=== PATIENT | male | born 1995 | race Caucasian/White ===

== ENCOUNTER 2020-06-16 05:01 | Emergency (ER) | payer MEDICARE, MEDICAID, SELFPAY ==
--- NOTE | ~2020-06-16 | XR_ITS ---
EXAMINATION: CHEST 2 VIEWS CLINICAL INFORMATION: Chest pain. COMPARISON: None. TECHNIQUE: PA and lateral views of the chest were obtained. FINDINGS: The cardiac silhouette is not enlarged. The mediastinal and hilar contours are unremarkable. There is a [id number] left apical pneumothorax without shift of midline structures. There are no pleural effusions. There are no consolidations. The osseous structures are unremarkable. XR/XR chest 2V IMPRESSION: Rqnbf-[id number] left apical pneumothorax without shift of midline structures. The aforementioned was communicated to Dr. Salinas at 0532 hours.
[2020-06-16 05:06] VITALS: BP 129/81; PULSE 92; RESP 16; TEMP 36.3; O2SAT 100; BMI 19.3
--- NOTE | 2020-06-16 05:10 | ECG_ITS ---
Test Reason : PNEUMO Blood Pressure : / mmHG Vent. Rate : 076 BPM Atrial Rate : 076 BPM P-R Int : 122 ms QRS Dur : 082 ms QT Int : 368 ms P-R-T Axes : 070 054 066 degrees QTc Int : 414 ms Normal sinus rhythm Normal ECG No previous ECGs available Referred By: Generic ED Physician Electronically Signed By:ROBERTO VELIZ
--- NOTE | 2020-06-16 05:13 | PC.NURSE ---
patient away for X-ray at this time.
--- NOTE | 2020-06-16 05:40 | ED_ITS ---
HPI - Chest Pain General Chief Complaint: Chest Pain Stated Complaint: Chest and arm pain Time Seen by Provider: 06/16/20 05:19 Source: patient Mode of arrival: ambulatory Limitations: no limitations History of Present Illness HPI narrative: 24-year-old male presented with sudden onset of left-sided chest pain, pain started 10 hours ago last night, denies any trauma to the chest, pain is localized to the left side of his chest, with no radiation, patient stated pain is moderate 5/10, pain is worsening by taking a deep breath, feels better when he take shallow breaths, no other associated symptoms, had similar pain in the past but never seek medical attention. Related Data Allergies Allergy/AdvReac Type Severity Reaction Status Date / Time No Known Allergies Allergy Unverified 01/25/20 16:31 Review of Systems Review of Systems: All other systems are reviewed and are negative Constitutional: Reports as per HPI and Reports no additional constitutional complaints Eyes: Reports as per HPI and Reports no additional eye complaints Reports system reviewed and no additional complaints, except as documented Cardiovascular: Reports as per HPI and Reports no additional cardiovascular complaints Respiratory: Reports as per HPI and Reports no additional respiratory complaints Gastrointestinal: Reports as per HPI and Reports no additional gastrointestinal complaints Genitourinary: Reports no additional female genitourinary complaints Musculoskeletal: Reports no additional musculoskeletal complaints Skin/Breast: Reports system reviewed and no additional complaints, except as docu Psychiatric: Reports no additional psychiatric complaints Endocrine: Reports no additional endocrine complaints Hematologic/Lymphatic: Reports no additional hematologic/lymphatic complaints Allergic/Immunologic: Reports no additional allergic/immunologic complaints Reports system reviewed and no additional complaints, except as documented and Reports Abnormal speech present [facility] Social History Social History Alcohol intake: never Smoking Status: Never smoker Use of substances other than those prescribed or required for medical reasons: No Advance Directives: No Advance Directives Information Provided: No Physical Exam Vital Signs: Vital Signs: Last Vital Signs Temp 97.3 F 06/16/20 05:06 Pulse 77 06/16/20 06:00 Resp 17 06/16/20 06:00 BP 116/80 06/16/20 06:00 Pulse Ox 100 06/16/20 06:00 Body Mass Index 19.3 Vital signs have been reviewed as normal and appeared to be correct. Blood pressure normal. Heart rate normal. Respiration rate normal. Temperature normal. Oxygen saturation normal. Appearance: Alert. Oriented X3. No acute distress. Head: Normal external exam. Normocephalic. Atraumatic. No Delgadillo signs noted. No raccoon eyes noted Eyes: PERRLA. EOMI. Conjunctiva and sclera normal. Eyelids normal. ENT:TM's Normal. Pharynx normal. Uvula midline. Moist mucous membranes. No trismus noted. No drooling noted. No muffled voice noted. Neck: Normal inspection. Neck supple. FROM. No adenopathy. Thyroid Normal. No meningeal signs. No neck mass noted. No subcu emphysema CVS: Normal heart rate and rhythm. Heart sound normal. No murmurs noted. Pulses normal throughout. Respiratory: No respiratory distress. Painless inspiration. Absence of breathing sounds on the left upper lung field otherwise Breath sounds normal. No wheezes/rales/rhonchi noted. Chest nontender. No accessory muscle usage noted or decreased air movement noted. No subcu emphysema Abdomen: Soft and nontender. Bowel sounds normal in all 4 quadrants. No diste ntion noted. No organomegaly noted. No visible injury noted. Back: No CVA tenderness. Full range of motion noted. Skin: Skin warm and dry. Normal skin color. Normal skin turgor. No rashes/lesions/lacerations noted. Extremities: No lower extremity edema. Extremities exhibit normal range of m otion. Extremities nontender. Neuro: Oriented X 3. No motor deficit. No sensory deficit. Reflexes normal. Course Course Course Narrative: Assessment and plan. 24-year-old male with nontraumatic spontaneous pneumothorax, case discussed with Tisha from thoracic surgeon service at [facility]. Who reviewed the x-ray and recommended to transfer the patient to [facility], patient will be transferred to [facility], patient has been accepted by Dr. Naveed CALLAHAN - Chest Pain Lab Data Attestation: I reviewed the patient's lab results. Result diagrams: 06/16/20 05:41 06/16/20 05:41 Labs: Lab Results 06/16/20 06/16/20 06/16/20 Range/Units 05:41 05:41 05:41 WBC 10.6 (4.8-10.8) X10*3/uL RBC 4.99 (4.60-5.80) X10*6/uL Hgb 13.9 L (14.0-18.0) g/dl Hct 41.8 L (42-52) % MCV 83.8 (80-98) fL MCH 27.9 (27.0-33.0) pg MCHC 33.3 (31.0-36.0) g/dl RDW 12.5 (11.0-16.0) % Plt Count 379 (160-400) X10*3/uL MPV 9.0 L (9.4-12.4) fL Immature Gran % (Auto) 0.4 (0.0-0.4) % Neut % (Auto) 59.8 (45-73) % Lymph % (Auto) 29.1 (20-40) % [place] % (Auto) 7.6 (2-11) % Eos % (Auto) 2.6 (0-4) % Baso % (Auto) 0.5 (0-2) % Lymph # (Auto) 3.1 (1.2-4.9) X10*3/uL [place] # (Auto) 0.8 (0.1-1.2) X10*3/uL Eos # (Auto) 0.3 (0.0-0.4) X10*3/uL Baso # (Auto) 0.1 (0.0-0.2) X10*3/uL Abs Immat Gran (auto) 0.04 H (0.00-0.03) X10*3/uL Absolute Neuts (auto) 6.3 (2.0-8.3) X10*3/uL Absolute Nucleated RBC 0.000 (0.0-0.012) X10*3/uL Nucleated RBC % (auto) 0.0 (0.0-0.2) /100WBC D-Dimer 727 NG/ML Hold Blue Top SEE NOTE Sodium 140 (135-145) mmol/L Potassium 4.1 (3.3-5.1) mmol/L Chloride 100 (96-108) mmol/L Carbon Dioxide 29 (22-29) mmol/L Anion Gap 15 (12-20) BUN 15 (9-16) mg/dL Creatinine 0.83 (0.5-1.4) mg/dL Estim Creat Clear Calc 104.7 Estimated GFR > 60 Random Glucose 91 (60-115) mg/dL Calcium 9.7 (8.4-10.2) mg/dL Troponin I High Sens (<3.5-35.0) ng/L 06/16/20 Range/Units 05:41 WBC (4.8-10.8) X10*3/uL RBC (4.60-5.80) X10*6/uL Hgb (14.0-18.0) g/dl Hct (42-52) % MCV (80-98) fL MCH (27.0-33.0) pg MCHC (31.0-36.0) g/dl RDW (11.0-16.0) % Plt Count (160-400) X10*3/uL MPV (9.4-12.4) fL Immature Gran % (Auto) (0.0-0.4) % Neut % (Auto) (45-73) % Lymph % (Auto) (20-40) % [place] % (Auto) (2-11) % Eos % (Auto) (0-4) % Baso % (Auto) (0-2) % Lymph # (Auto) (1.2-4.9) X10*3/uL [place] # (Auto) (0.1-1.2) X10*3/uL Eos # (Auto) (0.0-0.4) X10*3/uL Baso # (Auto) (0.0-0.2) X10*3/uL Abs Immat Gran (auto) (0.00-0.03) X10*3/uL Absolute Neuts (auto) (2.0-8.3) X10*3/uL Absolute Nucleated RBC (0.0-0.012) X10*3/uL Nucleated RBC % (auto) (0.0-0.2) /100WBC D-Dimer NG/ML Hold Blue Top Sodium (135-145) mmol/L Potassium (3.3-5.1) mmol/L Chloride (96-108) mmol/L Carbon Dioxide (22-29) mmol/L Anion Gap (12-20) BUN (9-16) mg/dL Creatinine (0.5-1.4) mg/dL Estim Creat Clear Calc Estimated GFR Random Glucose (60-115) mg/dL Calcium (8.4-10.2) mg/dL Troponin I High Sens < 3.5 (<3.5-35.0) ng/L Imaging Data Chest x-ray: Radiologist's impression: [id number]-[id number] left apical pneumothorax without shift of midline structures. Discharge Plan Discharge Clinical Impression: Primary spontaneous pneumothorax Patient Disposition: [facility] Transfer Details: [facility] Emergency Room. Instructions: Spontaneous Pneumothorax (ED)
[2020-06-16 05:46] VITALS: RESP 17
[2020-06-16 05:46] LABS: Basophils Absolute Auto 0.1 X10*3/uL (0.0-0.2); Basophils Percent Auto 0.5 % (0-2); Eosinophils Absolute Auto 0.3 X10*3/uL (0.0-0.4); Eosinophils Percent Auto 2.6 % (0-4); Hematocrit 41.8 % (42-52); Hemoglobin 13.9 g/dl (14.0-18.0); Imm Gran Abs Auto 0.04 X10*3/uL (0.00-0.03); Imm Gran Pct Auto 0.4 % (0.0-0.4); Lymphocytes Absolute Auto 3.1 X10*3/uL (1.2-4.9); Lymphocytes Percent Auto 29.1 % (20-40); MANUAL DIFF FLAG NO; Mean Corpuscular HGB Conc 33.3 g/dl (31.0-36.0); Mean Corpuscular Hemoglobin 27.9 pg (27.0-33.0); Mean Corpuscular Volume 83.8 fL (80-98); Monocytes Absolute Auto 0.8 X10*3/uL (0.1-1.2); Monocytes Percent Auto 7.6 % (2-11); Neutrophils Absolute Auto 6.3 X10*3/uL (2.0-8.3); Neutrophils Percent Auto 59.8 % (45-73); Platelet Count 379 X10*3/uL (160-400); Red Blood Count 4.99 X10*6/uL (4.60-5.80); Red Cell Distribution Width 12.5 % (11.0-16.0); White Blood Count 10.6 X10*3/uL (4.8-10.8)
[2020-06-16 05:55] LABS: D Dimer 727 NG/ML
[2020-06-16 06:00] VITALS: BP 116/80; PULSE 77; RESP 17; O2SAT 100
[2020-06-16 06:11] LABS: Troponin-I High Sensitivity < 3.5 ng/L (<3.5-35.0)
[2020-06-16 06:17] LABS: Anion Gap 15 (12-20); Blood Urea Nitrogen 15 mg/dL (9-16); Calcium 9.7 mg/dL (8.4-10.2); Carbon Dioxide 29 mmol/L (22-29); Chloride 100 mmol/L (96-108); Creatinine Clr Calc Pharmacy 104.7; Estimated Glomerular Filt Rate > 60; Glucose Random 91 mg/dL (60-115); Potassium 4.1 mmol/L (3.3-5.1); Sodium 140 mmol/L (135-145)
[2020-06-16 07:21] LABS: COVID-19 Test Negative (Negative); IDNOW Serial# 9DD0AD1C
== END 2020-06-16 07:10 | disposition short-term general hospital (02) ==
PROVIDERS: Emergency Provider Emergency Medicine; PCP Nurse Practitioner Family
DX: J93.11 Primary spontaneous pneumothorax (principal); Z20.822 Contact with and (suspected) exposure to COVID-19
CPT/HCPCS: 36415; 71046; 80048; 84484; 85025; 85379; 87635; 93005; 99285

== ENCOUNTER 2024-08-16 14:24 | Outpatient (REF) | payer MEDICARE, MEDICAID, SELFPAY ==
[2024-08-16 15:55] LABS: MANUAL DIFF FLAG NO
[2024-08-16 16:28] LABS: Basophils Absolute Auto 0.1 X10*3/uL (0.0-0.2); Basophils Percent Auto 0.8 % (0-2); Eosinophils Absolute Auto 0.2 X10*3/uL (0.0-0.4); Eosinophils Percent Auto 2.6 % (0-4); Hematocrit 38.7 % (42.0-52.0); Hemoglobin 13.4 g/dl (14.0-18.0); Imm Gran Abs Auto 0.02 X10*3/uL (0.00-0.03); Imm Gran Pct Auto 0.3 % (0.0-0.4); Lymphocytes Absolute Auto 2.2 X10*3/uL (1.2-4.9); Lymphocytes Percent Auto 30.9 % (20-40); Mean Corpuscular HGB Conc 34.6 g/dl (31.0-36.0); Mean Corpuscular Hemoglobin 27.8 pg (27.0-33.0); Mean Corpuscular Volume 80.3 fL (80.0-98.0); Mean Platelet Volume 9.1 fL (9.4-12.4); Monocytes Absolute Auto 0.7 X10*3/uL (0.1-1.2); Neutrophils Absolute Auto 4.1 x10*3/uL (2.0-8.3); Neutrophils Percent Auto 56.4 % (45-73); Platelet Count 368 X10*3/uL (160-400); Red Blood Count 4.82 X10*6/uL (4.60-5.80); Red Cell Distribution Width 12.8 % (11.0-16.0); White Blood Count 7.3 X10*3/uL (4.8-10.8)
[2024-08-16 17:08] LABS: Alanine Aminotransferase 25 U/L (0-40); Albumin Level 4.8 g/dL (3.5-5.0); Alkaline Phosphatase 70 U/L (39-117); Anion Gap 10 (12-20); Aspartate Amino Transferase 23 U/L (5-37); Bilirubin Total 0.8 mg/dL (0.0-1.0); Blood Urea Nitrogen 11 mg/dL (9-16); Calcium 9.7 mg/dL (8.4-10.2); Carbon Dioxide 27 mmol/L (22-29); Chloride 107 mmol/L (96-108); Cholesterol 160 mg/dL (<200); Estimated Glomerular Filt Rate > 60; Glucose Random 83 mg/dL (60-115); HDL Cholesterol 31 mg/dL (>40); LDL Cholesterol Calculated 84 mg/dL (<100); Magnesium 2.1 mg/dL (1.6-2.6); Potassium 4.1 mmol/L (3.3-5.1); Sodium 140 mmol/L (135-145); Total Protein 7.8 g/dL (6.5-8.0); Triglycerides 227 mg/dL (<150)
[2024-08-16 17:23] LABS: Free T4 (Free Thyroxine) 0.85 ng/dL (0.71-1.85); TSH reflex Free T4 1.25 uIU/mL (0.32-4.0); Vitamin D 25-OH Total 25.3 ng/mL (>30)
[2024-08-16 17:28] LABS: Rheumatoid Factor < 13.0 IU/mL (<15.0)
--- OUTSIDE RECORDS SUMMARY | 2024-08-16 17:33 | XMS_ITS | Clinical Summary ---
Author Organization [facility] ity Address [address] [place] [address] Care Team Providers Care Clerical Associate Name Role Phone Nona Lanier MD Primary Care Provider [phone] Surgical History Surgery Date Site/Laterality Comments OTHER SURGICAL HISTORY Left PROCEDURE: AL EXC HYDROCELE SPRMATIC CORD UNI SPX Social [...] age to complete this topic Care Teams Clerical Associate Relationship Specialty Start Date End Date Nona Lanier MD PCP - General Internal Medicine 06/17/20
[2024-08-16 17:39] LABS: Folate 7.2 ng/mL (> or = 4.0); Vitamin B12 626 pg/mL (200-900)
[2024-08-22 09:57] LABS: Anti Nuclear Antibody Screen POSITIVE (NEGATIVE)
== END 2024-08-16 14:25 | disposition home or self-care (01) ==
LOC: HO.LAB 14:24
DX: Z76.89 Persons encountering health services in other specified circumstances (principal); R06.02 Shortness of breath; L60.0 Ingrowing nail; L03.039 Cellulitis of unspecified toe; R63.6 Underweight; R19.5 Other fecal abnormalities; R29.898 Other symptoms and signs involving the musculoskeletal system; T30.0 Burn of unspecified body region, unspecified degree; Z00.00 Encounter for general adult medical examination without abnormal findings; Z13.220 Encounter for screening for lipoid disorders
CPT/HCPCS: 36415; 80053; 80061; 82306; 82607; 82746; 83735; 84439; 84443; 85025; 86038; 86039; 86431; 96127; 99202

== ENCOUNTER 2024-08-16 14:24 | Outpatient (AMB) | payer MEDICARE, MEDICAID, SELFPAY ==
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
[2024-08-16 14:35] VITALS: BP 120/70; PULSE 94; TEMP 36.3; O2SAT 95; BMI 17.5
--- OUTSIDE RECORDS SUMMARY | 2024-08-16 16:40 | XMS_ITS | Clinical Summary ---
Author Organization [facility] ity Address [address] [place] [address] Care Team Providers Care Compression Molding Machine Tender Name Role Phone Nona Lanier MD Primary Care Provider [phone] Surgical History Surgery Date Site/Laterality Comments OTHER SURGICAL HISTORY Left PROCEDURE: WA EXC HYDROCELE SPRMATIC CORD UNI SPX Social History Tobacco Use Types Packs/Day Years Used Date Smoking Tobacco: Never Smokeless Tobacco: Never Alcohol Use Standard Drinks/Week Comments No 0 (1 standard drink = 0.6 oz pur e alcohol) Sex and Gender Information Value Date Recorded Sex Assigned at Not on file Legal Sex Male 2:56 PM EST Gender Identity Not on file Sexual Orientation Not on file Obstetrics History Plan of Treatment Health Maintenance Due Date Last Done Comments DTaP,Tdap,and Td Vaccines (1 - Tdap) 2013 Hepatitis B Vaccines (1 of 3 - 19+ 3-dose series) 2013 Depression Screening 04/08/2022 HIV Screening 04/08/2022 Hepatitis C Screening 04/08/2022 Social Influencers of Health Screening 04/08/2022 COVID-19 Vaccine (2 - 2023-2 5 season) 2024 06/07/2020 Influenza Vaccine (Season Ended) 2025 HIB Vaccines Aged Out No longer eligi ble based on patient's age to complete this topic HPV Vaccines Aged Out No longer eligi ble based on patient's age to complete this topic Hepatitis A Vaccines Aged Out No long er eligible based on patient's age to complete this topic IPV Vaccines Aged Out No longer eligi ble based on patient's age to complete this topic MMR Vaccines Aged Out No longer eligi ble based on patient's age to complete this topic Meningococcal ACWY Vaccine Aged Out N o longer eligible based on patient's age to complete this topic Meningococcal B Vaccine Aged Out No l onger eligible based on patient's age to complete this topic Pneumococcal Vaccine: Pediat rics (0 to 5 Years) and At-Risk Patients (6 to 64 Years) Aged Out No longer eligi ble based on patient's age to complete this topic RSV Immunization Patients Un maxine 20 months Aged Out No longer eligible b ased on patient's age to complete this topic Varicella Vaccines Aged Out No longer eligible based on patient's age to complete this topic Care Teams Compression Molding Machine Tender Relationship Specialty Start Date End Date Nona Lanier MD PCP - General Internal Medicine 06/17/20
== END 2024-08-16 15:31 | disposition home or self-care (01) ==
DX: R06.02 Shortness of breath (principal); L60.0 Ingrowing nail; L03.039 Cellulitis of unspecified toe; R63.6 Underweight; R19.5 Other fecal abnormalities; R29.898 Other symptoms and signs involving the musculoskeletal system; T30.0 Burn of unspecified body region, unspecified degree

== ENCOUNTER 2024-08-30 15:21 | Outpatient (AMB) | payer MEDICARE, MEDICAID, SELFPAY ==
[2024-08-30 15:27] VITALS: BP 110/70; PULSE 99; TEMP 36.3; O2SAT 98; BMI 17.8
--- NOTE | 2024-08-30 15:27 | MHC.PC.OV ---
Vital Signs 08/30/24 15:27 Height 5 ft 5.75 in Weight 109 lb 4 oz BMI 17.8 BP 110/70 Blood Pressure Location Lt brachial Position Sitting Pulse 99 Pulse Source Pulse Oximeter Temp 97.3 F Temp Source Temporal Artery Scan Pulse Oximetry (%) 98 Oxygen Delivery Method Room Air Intake Visit Reasons: f/u blood work Intake Note: Patient is here to follow up on Lab results. Severity Of Illness Coordinator Required: No Community Dietitian: Not Required per policy Accompanied by: Self / Same As Patient Allergies No Known Allergies Allergy (Verified 08/30/24 16:01) Medication List - Last Reconciled 08/30/24 by Amelia Gonzalez PA-C food supplemt, lactose-reduced (Boost High Protein) 1 ea PO QID Tobacco use date assessed: 08/30/24 Dental Screening Dental Screen Date: 08/16/24 HPI f/u blood work HPI Details 28-year-old male last seen 08/2024 coming in for follow up on blood work.? Presenting with a chronic ingrown toenail associated with cellulitis and paronychia. Persistent for one year, it remains painful and unchanged in symptoms despite antibiotic treatment. Warm compresses and baths are part of the management approach. Recent lab results indicate anemia with no urgent concerns specified, elevated triglycerides, and a vitamin D deficiency. The patient reports occasional watery stools, and there is a history of insurance coverage issues for nutritional supplements, though past coverage was successful for an alternative product. [facility] Surgical History History of endoscopy Social History Housing: Apartment Alcohol intake: never Patient Tobacco Use Status: Never used Tobacco e-Cigarette/Vaping Use: Never Used Second Hand Smoke Exposure: No service: No Current occupational status: unemployed and student Cognitive needs: No Hearing needs: No Vision needs: No Questionnaire Thrive Questionnaire Date Thrive assessed: 08/16/24 YAZMIN-7 AMB Questionnaire YAZMIN-7 Date YAZMIN - 7 assessed: 08/16/24 Source: Developed by Drs. Yan Renteria, Daphney Manzanares, Rob Keith and colleagues, with an educational shelly from [employer]. Review of Systems Const Denies body aches, Denies chills, Denies fever(s), Denies headache(s) and Denies poor appetite Eyes Reports no additional complaints ENT Denies dizziness, Denies headache(s) and Denies odynophagia Card Denies chest pain and Reports dyspnea Resp Reports dyspnea GI Denies abdominal pain, Reports constipation, Reports diarrhea, Denies nausea, Denies odynophagia and Denies vomiting Reports no additional complaints Musc Reports no additional complaints and Denies abnormal gait Skin/Breast Reports system reviewed and no additional complaints, except as documented Neuro Denies abnormal gait, Denies dizziness and Denies headache(s) Psych Reports no additional complaints Physical exam (Primary Care) Vital Signs: Last Vital Signs Temp 97.3 F 08/30/24 15:27 Pulse 99 08/30/24 15:27 BP 110/70 08/30/24 15:27 Pulse Ox 98 08/30/24 15:27 Oxygen Delivery Method Room Air 08/30/24 15:27 BMI result Body Mass Index 17.8 Tobacco/Smoking Status: Tobacco use Status Tobacco use date assessed 08/30/24 08/30/24 15:32 Patient Tobacco Use Status Never used Tobacco 08/30/24 15:27 e-Cigarette/Vaping Use Never Used 08/30/24 15:27 Thrive Assessment: Date of Thrive Assessment Date Thrive assessed 08/16/24 08/30/24 15:27 Const General: cooperative, healthy appearing, comfortable and no acute distress Orientation/consciousness: patient oriented x3 HENMT Head: Yes normocephalic Ears: hearing grossly normal bilaterally General nose exam: Normal external nose present Eyes General: appearance normal, both eyes and all related structures Conjunctivae: conjunctivae normal Neck Neck: Yes full ROM and Yes no lymphadenopathy Resp Effort & Inspection: normal respiratory effort Auscultation: clear to auscultation bilaterally, no crackles, no rales, no rhonchi and no wheezes Cardio Rate: regular rate Rhythm: regular rhythm Skin Other: Non fluctuant paronychia of right great toe without surrounding erythema warmth General skin exam: no rashes or lesions noted Neuro General: patient oriented x3 Gait exam (Neuro): Normal gait present Extrem General: Yes normal to inspection, Yes full ROM and No edema Psych Affect: normal affect Attitude: cooperative Insight: Good insight present (Psych) Judgement: Good judgement present (Psych) Coding Level of Care Code Est Pt Level 3 (73680) Diagnoses Underweight R63.6 Abnormal stool caliber R19.5 Paronychia of great toe L03.039 Ingrown toenail L60.0 Low vitamin D level R79.89 Hypertriglyceridemia E78.1 Assessment & Plan Assessment & Plan (1) Underweight: Code(s): R63.6 - Underweight Category: Medical Plan: Prescription sent for ensure as boost was not covered by his insurance. (2) Abnormal stool caliber: Code(s): R19.5 - Other fecal abnormalities Category: Medical Plan: Patient has a appointment coming up with GI. (3) Paronychia of great toe: Code(s): L03.039 - Cellulitis of unspecified toe Category: Medical Plan: Patient continues to have chronic paronychia great toe has been present for least 1 year. No fluctuance on exam recommend continued warm compress no antibiotics indicated at this time. Recommend following up with Podiatry for further evaluation and patient was provided with number today. (4) Ingrown toenail: Code(s): L60.0 - Ingrowing nail Category: Medical Plan: See above (5) Low vitamin D level: Code(s): R79.89 - Other specified abnormal findings of blood chemistry Category: Medical Plan: Prescription sent for supplementation (6) Hypertriglyceridemia: Code(s): E78.1 - Pure hyperglyceridemia Category: Medical Plan: Healthy diet and regular exercise is encouraged. Plan I advised coordinating care with a litigation docket manager for the management of the ingrown toenail with cellulitis and paronychia, recommending potential surgical intervention if necessary. Presently, antibiotics were not deemed necessary given the course of infection. Management for anemia involves observation as symptoms are not urgent. Hypertriglyceridemia will be approached with dietary and lifestyle modifications. I prescribed vitamin D supplementation to address the deficiency shown in lab results. We discussed trying alternative supplements for occasional watery stools subject to insurance review. Follow-up in three months is planned for ongoing coordination with specialists and further evaluation. This note was constructed using voice recognition software. While every effort has been made to ensure accuracy and manager drug safety, still areas may have been included sometimes these areas may affect the content or meeting of the given symptoms. Total time spent caring for the patient today was 20 minutes. This includes time spent before the visit reviewing the chart, time spent during the visit, and time spent after the visit and documentation. Patient was informed and verbally consented to the use of an ambient scribe for clinic note documentation during this visit. Medications: New cholecalciferol (vitamin D3) 25 mcg PO DAILY 90 caps 3RF food supplemt, lactose-reduced (Ensure Original) QID with meals for supplementation 1 ea PO QID 5,688 mL 2RF R63.6 - Underweight
--- OUTSIDE RECORDS SUMMARY | 2024-08-30 18:04 | XMS_ITS | Clinical Summary ---
Author Organization [facility] ity Address [address] [place] [address] Care Team Providers Care Research Center Director Name Role Phone Nona Lanier MD Primary Care Provider [phone] Surgical History Surgery Date Site/Laterality Comments OTHER [...] age to complete this topic Care Teams Research Center Director Relationship Specialty Start Date End Date Nona Lanier MD PCP - General Internal Medicine 06/17/20
== END 2024-08-30 16:10 | disposition home or self-care (01) ==
LOC: HO.HMCH 15:21
DX: R63.6 Underweight (principal); R19.5 Other fecal abnormalities; L03.039 Cellulitis of unspecified toe; L60.0 Ingrowing nail; R79.89 Other specified abnormal findings of blood chemistry; E78.1 Pure hyperglyceridemia

== ENCOUNTER → 2024-08-30 15:21 | Outpatient (BNVA) | payer MEDICARE, MEDICAID, SELFPAY | DX: R63.6 Underweight (principal); R19.5 Other fecal abnormalities; L03.039 Cellulitis of unspecified toe; L60.0 Ingrowing nail; R79.89 Other specified abnormal findings of blood chemistry; E78.1 Pure hyperglyceridemia | CPT/HCPCS: 99212 ==